=== PATIENT | male | born 1980 | race Caucasian/White ===

== ENCOUNTER 2021-07-28 12:19 | Emergency (ER) | payer BC ==
--- NOTE | 2021-07-28 13:36 | RAD REPORT ---
EXAM DESCRIPTION: CT - Stone Protocol - 07/28/2021 1:26 pm CLINICAL HISTORY: ABD PAIN COMPARISON: No comparisons TECHNIQUE: Axial 3 mm thick images were obtained without oral or IV contrast. The [id number] span s the entirety of the system including uppermost abdomen and lung bases. All CT scans are performed using dose optimization technique as appropriate and may include automated exposure control or mA/KV adjustment according to patient size. FINDINGS: No hydronephrosis is present and no obstructing ureteral calculi. No suspicious renal mass es. Isodense masses and pyelonephritis are not excluded on a stone protocol CT scan. No significant a drenal finding. No urinary bladder suspicious finding. Imaged portions of the liver, spleen and pancreas show no suspicious findings on non-contrast imaging . Gallbladder is contracted. Several small sub centimeter gallstones are present near the neck of the gallbladder. No biliary tree dilatation. No suspicious bowel findings. Retrocecal appendix is unremarkable. No hernia, mass or bulky lymphadenopathy noted. No free air, free fluid or inflammatory stranding. No significant bony abnormality. Mild degenerative changes seen at the endplates and facet joints. Th is IMPRESSION: Negative CT stone protocol study. Isodense masses and pyelonephritis are not excluded on stone protocol technique.
--- NOTE | 2021-07-28 13:54 | ER ---
Nurse's Notes [facility] Name: Rubens Sandhu Jr Age: 41 yrs Sex: Male : 1980 Arrival Date: 07/28/2021 Time: 12:22 Bed 9 Private MD: Diagnosis: Low back pain Presentation: 07/28 12:59 Chief complaint: Patient states: Left flank pain that goes to LUQ that began on vg1 07/25/21 at 0300. Pt denies blood in urine, urgency, or NVD. Does states that is 'having a hard time peeing at times'. Coronavirus screen: Vaccine status: Patient reports receiving the 2nd dose of the covid vaccine. Client denies travel out of the [place] in the last 14 days. Ebola Screen: Patient negative for fever greater than or equal to 101.5 degrees Fahrenheit, and additional compatible Ebola Virus Disease symptoms. Initial Sepsis Screen: Does the patient meet any 2 criteria? No. Patient's initial sepsis screen is negative. Does the patient have a suspected source of infection? No. Patient's initial sepsis screen is negative. Risk Assessment: Do you want to hurt yourself or someone else? Patient reports no desire to harm self or others. Onset of symptoms was July 25, 2021. 12:59 Method Of Arrival: Ambulatory vg1 12:59 Acuity: ANDREA 3 vg1 Triage Assessment: 13:04 General: Appears in no apparent distress. uncomfortable, Behavior is calm, cooperative. vg1 Pain: Complains of pain in Left flank and LUQ. Musculoskeletal: Circulation, motion, and sensation intact. Historical: - Allergies: 13:04 No Known Allergies; vg1 - Home Meds: 13:04 Dexilant oral [Active]; vg1 - PMHx: 13:04 GERD; Hypercholesterolemia; vg1 - Immunization history:: Adult Immunizations up to date, Client reports receiving the 2nd dose of the Covid vaccine. - Social history:: Smoking status: Patient reports the use of cigarette tobacco products, smokes one-half pack cigarettes per day. Screenin:00 Abuse screen: Denies threats or abuse. Nutritional screening: No deficits noted. as6 Tuberculosis screening: No symptoms or risk factors identified. Fall Risk None identified. Assessment: 13:30 General: Appears in no apparent distress. comfortable, Behavior is calm, cooperative. as6 Pain: Complains of pain in left flank. Neuro: Level of Consciousness is awake, alert, obeys commands, Oriented to person, place, time, situation. Cardiovascular: Capillary refill < 3 seconds Patient's skin is warm and dry. Respiratory: Airway is patent Respiratory effort is even, unlabored, Respiratory pattern is regular, symmetrical. : Reports pain in left flank(s), Denies burning with urination, discharge, denies blood in urine. Vital Signs: 12:59 BP 150 / 102; Pulse 77; Resp 16; Temp 99.4(O); Pulse Ox 98% ; Weight 89.36 kg; Height 6 vg1 ft. 1 in. (185.42 cm); Pain 6/10; 12:59 Body Mass Index 25.99 (89.36 kg, 185.42 cm) vg1 ED Course: 12:22 Patient arrived in ED. mr 13:04 Triage completed. vg1 13:04 Arm band placed on. vg1 13:05 Yanni Braun FNP-C is [facility]. kb 13:05 Davian Munroe MD is Attending Physician. kb 13:26 CT Stone Protocol In Process Unspecified. EDMS 14:00 Patient has correct armband on for positive identification. Bed in low position. Call as6 light in reach. Side rails up X 1. Pulse ox on. NIBP on. 14:12 No provider procedures requiring assistance completed. Patient did not have IV access as6 during this emergency room visit. Administered Medications: No medications were administered Outcome: 13:53 Discharge ordered by . kb 14:12 Discharged to home ambulatory. as6 14:12 Condition: stable 14:12 Discharge instructions given to patient, Instructed on discharge instructions, follow up and referral plans. medication usage, Demonstrated understanding of instructions, follow-up care, medications, Prescriptions given X 2. 14:13 Patient left the ED. as6 Signatures: Dispatcher [employer] EDCA Yanni Braun FNP-C FNP-Ckb Rivera, Mary Ashley Dickerson, RN RN vg1 Shola Momin, RAFAEL RN as6
--- NOTE | 2021-07-28 13:55 | EDPHYS ---
Physician Documentation [facility] Name: Rubens Sandhu Jr Age: 41 yrs Sex: Male : 1980 Arrival Date: 07/28/2021 Time: 12:22 Bed 9 Private MD: ED Physician Davian Munroe HPI: 07/28 13:09 This 41 yrs old Male presents to ER via Ambulatory with complaints of Back kb Pain. 13:09 The patient presents with pain that is acute, with no known mechanism of injury. The kb symptoms are located in the left mid back. Onset: The symptoms/episode began/occurred 3 day(s) ago. The pain does not radiate. Associated signs and symptoms: The patient has no apparent associated signs or symptoms. The problem was sustained from unknown cause. Modifying factors: The patient symptoms are alleviated by nothing, the patient symptoms are aggravated by any movement. Severity of symptoms: At their worst the symptoms were moderate, in the emergency department the symptoms are unchanged. The patient has not experienced similar symptoms in the past. The patient has not recently seen a physician. Historical: - Allergies: 13:04 No Known Allergies; vg1 - Home Meds: 13:04 Dexilant oral [Active]; vg1 - PMHx: 13:04 GERD; Hypercholesterolemia; vg1 - Immunization history:: Adult Immunizations up to date, Client reports receiving the 2nd dose of the Covid vaccine. - Social history:: Smoking status: Patient reports the use of cigarette tobacco products, smokes one-half pack cigarettes per day. ROS: 13:08 Constitutional: Negative for fever, chills, and weight loss. kb 13:08 Back: Positive for pain at rest, pain with movement, flank pain, on the left. 13:08 All other systems are negative. Exam: 13:09 Constitutional: This is a well developed, well nourished patient who is awake, alert, kb and in no acute distress. Head/Face: Normocephalic, atraumatic. ENT: Moist Mucous membranes Cardiovascular: Regular rate and rhythm with a normal S1 and S2. No gallops, murmurs, or rubs. No pulse deficits. Respiratory: Respirations even and unlabored. No increased work of breathing, no retractions or nasal flaring. Abdomen/GI: Soft, non-tender. No distention Back: No spinal tenderness. No costovertebral tenderness. Full range of motion. Skin: Warm, dry with normal turgor. Normal color. MS/ Extremity: Pulses equal, no cyanosis. Neurovascular intact. Full, normal range of motion. Neuro: Awake and alert, GCS 15, oriented to person, place, time, and situation. Moves all extremities. Normal gait. Psych: Awake, alert, with orientation to person, place and time. Behavior, mood, and affect are within normal limits. Vital Signs: 12:59 BP 150 / 102; Pulse 77; Resp 16; Temp 99.4(O); Pulse Ox 98% ; Weight 89.36 kg; Height 6 vg1 ft. 1 in. (185.42 cm); Pain 6/10; 12:59 Body Mass Index 25.99 (89.36 kg, 185.42 cm) vg1 MDM: 13:08 Patient medically screened. kb 13:09 Data reviewed: vital signs, nurses notes. Data interpreted: Pulse oximetry: on room air kb is 98 %. Interpretation: normal. 13:53 Counseling: I had a detailed discussion with the patient and/or guardian regarding: the kb historical points, exam findings, and any diagnostic results supporting the discharge/admit diagnosis, lab results, radiology results, the need for outpatient follow up, a family practitioner, to return to the emergency department if symptoms worsen or persist or if there are any questions or concerns that arise at home. 07/28 14:08 Order name: Urine Dipstick-Ancillary; Complete Time: 14:10 EDMS 07/28 13:06 Order name: CT Stone Protocol; Complete Time: 13:37 kb Administered Medications: No medications were administered Disposition: 07/29 11:35 Co-signature as Attending Physician, Davian Munroe MD I agree with the assessment and marcos plan of care. Disposition Summary: 07/28/21 13:53 Discharge Ordered Location: Home kb Condition: Stable kb Diagnosis - Low back pain kb Followup: kb - With: Emergency Department - When: As needed - Reason: Worsening of condition Followup: kb - With: Private Physician - When: 2 - 3 days - Reason: Recheck today's complaints, Continuance of care, Re-evaluation by your physician Discharge Instructions: - Discharge Summary Sheet kb - Musculoskeletal Pain kb - Flank Pain, Adult, [id number] kb Forms: - Medication Reconciliation Form kb - Thank You Letter kb - Antibiotic Education kb - Prescription Opioid Use kb Prescriptions: - Cyclobenzaprine 10 mg Oral Tablet - take 1 tablet by ORAL route every 8 hours As needed; 21 tablet; Refills: 0, kb Product Selection Permitted - Diclofenac Sodium 75 mg Oral tablet,delayed release (DR/EC) - take 1 tablet by ORAL route 2 times per day As needed; 30 tablet; Refills: 0, kb Product Selection Permitted Signatures: Dispatcher [employer] Yanni Vogt, GLO-Lili DUMONTP-Davian Mann MD MD cha Garcia, Victoria, RN RN vg1
[2021-07-28 14:08] LABS: Urine Blood Negative (Negative); Urine Glucose Negative (Negative); Urine Protein Negative (Negative); Urine Specific Gravity 1.025 (1.005-1.030)
[2021-07-28 14:38] VITALS: BP 150/102; TEMP 99.4; O2SAT 98
--- OUTSIDE RECORDS SUMMARY | 2021-08-09 05:06 | XMS REPORT | Continuity of Care Document ---
:1980 Author Organization [facility] t Address [address] [place] [address] Care Team Providers Name Role Phone PCP, DOES NOT HAVE A Primary Care Physician Unavailable FLAVIO Attending Clinician Unavailable Flavio JANE Attending Clinician Doctor Unassigned, Name Attending Clinician Unavailable Lab, Fam Pob I Attending Clinician Unavailable Do CODY Attending Clinician DO Attending Clinician Unavailable Payers Payer Name Policy Type Policy Number Effective Date Expiration Date S [facility] - [id number] 2017 00:00:00 OUT OF STATE Problems Condition Condition Condition Status Onset Resolution Last Treating Co mments Source Name Details Category Date Date Treatment Clinician Date No known No known Disease Unive rs active active ity of problems problems [facility] Allergies, Adverse Reactions, Alerts Allergy Allergy Status Severity Reaction(s) Onset Inactive Treating Comm ents Source Name Type Date Date Clinician NO KNOWN Drug Active Univers ALLERGIE Class ity of S [facility] Social History Social Habit Start Date Stop Date Quantity Comments Source History of Cigarette Smoker Universi ty of tobacco use [facility] Exposure to Not sure University of SARS-CoV-[address] [facility] (event) [place] Tobacco use and 2021-07-28 2021-07-28 Never used Universit y of exposure 00:00:00 00:00:00 [facility] Sex Assigned At [birth year] Universit y of 00:00:00 00:00:00 [facility] Smoking Status Start Date Stop Date Source Unknown if ever smoked Universit y of [facility] Current every day smoker 2021-07-28 00:00:00 [facility] Medications Ordered Filled Start Stop Current Ordering Indication Dosage Frequency Signature Comments Components Source Medication Medication Date Date Medication? Clinician (SIG) Name Name benzonatate 2020-09 Yes [id number] 200mg Take 2 Univers 100 mg 09-27 capsules [place] capsule [place]:00[place] Medical times Branch daily as needed for Cough. guaiFENesin 2020-09 Yes [id number] 400mg Take 1 Univers 400 mg 09-27 tablet by ity of tablet 00:00: mouth [place] 00 every 4 Medical (four) Branch hours as needed for Cough. bromphenira 2020-09 Yes [id number] 5mL Take 5 mL Univers mine-pseudo 09-27 by mouth 4 it y of ephedrine-D 00:00[place] ([place] (BROMFED 00 times Medical DM) 2-30-10 daily as Bran ch mg/5 mL needed for syrup Congestion /Allergies . amoxicillin 2020-09- Yes [id number] 1{tbl} Take 1 Univers -clavulanat 09-27 tablet by it y of e 00:00: 05:59 mouth 2 [place] (AUGMENTIN) 00 :00 (two) Medical 875-125 mg times Branch per tablet daily for 7 days. Vital Signs Vital Name Observation Time Observation Value Comments Source Systolic blood 2021-07-28 16:13:00 142 mm[Hg] [facility] Diastolic blood 2021-07-28 16:13:00 95 mm[Hg] [facility] Heart rate 2021-07-28 16:11:00 71 /min [facility] Body temperature 2021-07-28 16:11:00 36.67 Silvia [facility] Respiratory rate 2021-07-28 16:11:00 18 /min [facility] Body weight 2021-07-28 16:11:00 89.54 kg [facility] Oxygen saturation in 2021-07-28 16:11:00 97 /min [facility] blood by [facility] Pulse oximetry Branch Procedures Procedure Date / Time Performed Performing Clinician Sourc e POCT URINALYSIS 2021-07-28 16:22:00 Bhavna Muniz [place] o f [facility] ASSIGNMENT OF BENEFITS 2021-07-28 15:57:45 Doctor Unassigned, No [facility] Encounters Start End Encounter Admission Attending Care Care Encounter Source Date/Time Date/Time Type Type Clinicians Facility Department ID 2021-07-28 2021-07-28 Outpatient R FLAVIO [facility] [id number] Univers 11:00:00 11:41:56 [facility] 2021-07-28 2021-07-28 Urgent [facility] [id number] Univers 10:58:55 11:41:56 Care Bhavna [facility] [id number] it y of [place] [id number] Shai as KACIE?BLEA [id number] Ak dicwv SARAH [address] [place] [facility] 2021-07-28 2021-07-28 Outpatient R [facility] [id number] Univers 11:00:00 11:00:00 [id number] 2021-07-28 2021-07-28 Orders Doctor BJORN [id number] Univers 00:00:00 00:00:00 Only Unassigned, BRENDA [id number] [facility] [id number] Shai as [id number] [address] 2020-08-07 2020-08-07 Laboratory Lab, Adc Fam Pob I [facility] [id number]. [id number] Univers 19:32:26 19:52:26 Only Kali Javier [employer] [id number] ity of [place] [id number] Shai as Professio [phone] [facility] [address] [place] [address] 2020-08-07 2020-08-07 Outpatient R DO [facility] [id number] Univers 19:40:00 19:40:00 [facility] Results Test Description Test Time Test Comments Results Result Comments Source POCT URINALYSIS W SPECIFIC GRAVITY 2021-07-28 16:22:00 Test Item Value Reference Range Interpretation Comme nts POCT U SP GRAV (test code = 1.015 mg/dl 1.005-1.025 3255) POCT PH U (test code = 3254) 7 mg/dl 5-8 POCT U LEUK EST (test code = neg Negative - Negative 3263) POCT U NIT (test code = 3262) neg Negative - Negative POCT U PROT (test code = 3259) neg Negative - Negative POCT U GLU (test code = 3256) norm Negative - Negative POCT U KETONE (test code = neg Negative - Negative 3258) POCT U UROBILI (test code = norm 0.2-1 3260) POCT U BILI (test code = 3261) neg Negative - Negative POCT U BLD (test code = 3257) neg Negative - Negative POCT U COLOR (test code = 3266) yellow POCT U APPEAR (test code = cloudy 3267) YANDY (test code = YANDY) accurate development and interpretation of all internal controls Lab Interpretation (test code = Normal 50369-8) [facility]
== END 2021-07-28 14:13 | disposition home or self-care (01) ==
LOC: ER 12:19
DX: M54.50 Low back pain, unspecified (principal); F17.210 Nicotine dependence, cigarettes, uncomplicated
CPT/HCPCS: 74176; 76377; 81003; 99283